=== PATIENT | male | born 1975 | race Caucasian/White ===

== ENCOUNTER 2018-11-23 18:05 | Emergency (ER) | payer OTHER ==
[~2018-11-23] VITALS: Ht 167.6 cm; Wt 65.0 kg
[2018-11-23] MEDS ORDERED: SOD CHLORIDE 0.9% 1,000 ML IV STA (18:09)
[2018-11-23 18:10] VITALS: Ht 167.6 cm; Wt 65.0 kg
[2018-11-23] MEDS ORDERED: ONDA4TAB14 PO (19:36)
--- NOTE | 2018-11-23 19:38 | ERD ---
ER Documentation Chief Complaint Chief Complaint near syncope, + orthostatics dizziness sudden onset HPI Patient is a 43-year-old male with hypertension who presents with dizziness. The patient was brought in by ambulance. He felt dizzy and laid down but when he went to stand up he almost passed out per paramedics. He was pale and sweaty. Blood sugars were 101. He was given a 500 normal saline bolus by medics as well as Zofran. He had vomiting and diarrhea recently. He does not remember the name of his primary doctor. ROS All systems reviewed and are negative except as per history of present illness. Medications Home Meds Active Scripts Ondansetron (Ondansetron Odt) 4 Mg Tab.rapdis, 4 MG PO Q6H PRN for NAUSEA AND/OR VOMITING, #10 TAB Prov:ROSALIA HERRERA MD 11/23/18 Allergies Allergies: Coded Allergies: No Known Allergy (Unverified , 11/23/18) PMhx/Soc Medical and Surgical Hx: pt denies Surgical Hx History of Surgery: No Anesthesia Reaction: No Hx Neurological Disorder: No Hx Respiratory Disorders: No Hx Cardiac Disorders: Yes (HTN) Hx Psychiatric Problems: No Hx Miscellaneous Medical Probl: No Hx Alcohol Use: Yes (occasional) Hx Substance Use: No Hx Tobacco Use: No Smoking Status: Never smoker FmHx Family History: No diabetes Physical Exam Vitals Vital Signs Date Temp Pulse Resp B/P (MAP) Pulse Ox O2 O2 Flow FiO2 Time Delivery Rate 11/23/18 98.0 82 25 125/87 96 Room Air 19:57 (100) 11/23/18 98.5 70 18 122/77 99 18:10 (92) Physical Exam Const: No acute distress Head: Atraumatic Eyes: Normal Conjunctiva ENT: Normal External Ears, Nose and Mouth. Neck: Full range of motion. No meningismus. Resp: Clear to auscultation bilaterally Cardio: Regular rate and rhythm, no murmurs Abd: Soft, non tender, non distended. Normal bowel sounds Skin: No petechiae or rashes Back: No midline or flank tenderness Ext: No cyanosis, or edema Neur: Awake and alert Psych: Normal Mood and Affect Result Diagram: 11/23/18 1823 11/23/18 1823 Results 24 hrs Laboratory Tests Test 11/23/18 18:23 11/23/18 18:30 White Blood Count 8.1 10^3/ul Red Blood Count 4.91 10^6/ul Hemoglobin 14.5 g/dl Hematocrit 42.1 % Mean Corpuscular Volume 85.7 fl Mean Corpuscular Hemoglobin 29.5 pg Mean Corpuscular Hemoglobin Concent 34.4 g/dl Red Cell Distribution Width 12.0 % Platelet Count 186 10^3/UL Mean Platelet Volume 9.6 fl Immature Granulocytes % 0.500 % Neutrophils % 62.6 % Lymphocytes % 26.1 % Monocytes % 7.0 % Eosinophils % 3.4 % Basophils % 0.4 % Nucleated Red Blood Cells % 0.0 /100WBC Immature Granulocytes # 0.040 10^3/ul Neutrophils # 5.1 10^3/ul Lymphocytes # 2.1 10^3/ul Monocytes # 0.6 10^3/ul Eosinophils # 0.3 10^3/ul Basophils # 0.0 10^3/ul Nucleated Red Blood Cells # 0.0 10^3/ul Sodium Level 140 mmol/L Potassium Level 3.2 mmol/L Chloride Level 101 mmol/L Carbon Dioxide Level 26 mmol/L Anion Gap 13 Blood Urea Nitrogen 15 mg/dl Creatinine 0.94 mg/dl Est Glomerular Filtrat Rate mL/min > 60 mL/min Glucose Level 133 mg/dl Calcium Level 8.8 mg/dl Troponin I < 0.012 ng/ml Bedside Glucose 131 mg/dL Current Medications Medications Dose Sig/Matti Start Time Status Last (Trade) Ordered Route PRN Stop Time Admin Dose Reason Admin Sodium 1,000 ml @ Q1H STAT 11/23/18 DC 11/23/18 Chloride 1,000 mls/hr IV 18:09 18:36 11/23/18 19:08 Procedures/MDM EKG read by me: Rate/Rhythm: Regular rate and rhythm at a rate of 73 Intervals: Normal Impression: No evidence of ischemia or arrhythmia Patient is a 43-year-old male with hypertension who presents with dizziness. I believe patient likely has dehydration from a viral syndrome with vomiting and diarrhea. The patient will be discharged home. I doubt serious cause of his syncope. EKG was normal. The patient can return for any worsening symptoms. He was given normal saline 1 L bolus in the emergency department. Departure Diagnosis: Primary Impression: Syncope Syncope type: unspecified Qualified Codes: R55 - Syncope and collapse Additional Impression: Dizziness Condition: Fair Patient Instructions: Self-Care for Vomiting and Diarrhea, Syncope, Unk Cause Referrals: Your doctor Additional Instructions: Llame al doctor MAANA y anastasiia gracie SUSAN PARA DENTRO DE 1-2 ESQUIVEL.Dgale a la sec retaria que nosotros le instruimos hacer esta susan.Avise o llame si villar condicin se empeora antes de la susan. Regresa aqui si peor o no mejor. ROSALIA HERRERA MD Nov 23, 2018 19:38
[2018-11-23 19:57] VITALS: BP 125/87; PULSE 82; RESP 25
== END 2018-11-23 20:00 | disposition home or self-care (01) ==
LOC: E/R 18:05
DX: R55 Syncope and collapse (principal); R42 Dizziness and giddiness; I10 Essential (primary) hypertension
CPT/HCPCS: 36415; 80048; 82962; 84484; 85025; 93005; 96360; J7030; Z7502